=== PATIENT | female | born 1950 | race Caucasian/White ===

== ENCOUNTER 2018-11-20 09:36 | Emergency (ER) | payer OTHER, MEDICAID | END 2018-11-20 10:57 | disposition home or self-care (01) | LOC: FTE 09:36 | DX: H10.9 Unspecified conjunctivitis (principal); E11.9 Type 2 diabetes mellitus without complications; I10 Essential (primary) hypertension; Z79.4 Long term (current) use of insulin; Z79.82 Long term (current) use of aspirin | CPT/HCPCS: 99283 ==

== ENCOUNTER 2019-07-25 18:37 | Emergency (ER) | payer BC, OTHER ==
[2019-07-25] MEDS: FAMOTIDINE 20 MG TAB PO (21:41)
[2019-07-25] MEDS: HYDROCODONE/APAP (5/325) TAB PO (21:41)
== END 2019-07-25 22:23 | disposition home or self-care (01) ==
LOC: FTE 18:37
DX: K80.20 Calculus of gallbladder without cholecystitis without obstruction (principal)
CPT/HCPCS: 99283